=== PATIENT | male | born 2005 | race Caucasian/White ===

== ENCOUNTER 2024-12-25 21:35 | Emergency (ER) | payer MEDICAID ==
[2024-12-25] MEDS: Take Home: traMADol 50 MG, 4 Tab Pack PO ONE (23:10)
[2024-12-25] MEDS: Take Home: Ketorolac 10 MG Tab, 4 Tab Pack PO ONE (23:10)
[2024-12-25] MEDS: Take Home: valACYclovir HCl 1 GM Tab, 6 Tab Pack PO ONE (23:10)
== END 2024-12-25 23:20 | disposition home or self-care (01) ==
LOC: LL.ED 21:35
DX: K13.79 Other lesions of oral mucosa (principal)
CPT/HCPCS: 87529; 99282; 99283; A9270-GY